=== PATIENT | female | born 1985 | race Caucasian/White ===

== ENCOUNTER 2024-05-14 14:32 | Emergency (ER) | payer OTHER ==
[~2024-05-14] VITALS: Ht 152.4 cm; Wt 113.4 kg
--- NOTE | 2024-05-14 15:05 | NUR ---
covid swab collected and sent
--- NOTE | 2024-05-14 15:05 | NUR ---
medical clearance for voluntary psych admission for [facility] denies HI. no plan
--- NOTE | 2024-05-14 15:07 | NUR ---
UA collected and sent
[2024-05-14 15:23] LABS: BASOPHILS % (AUTO) 0.5 % (0.0-2.0); EOSINOPHILS # (AUTO) 0.1 K/uL (0.0-0.7); EOSINOPHILS % (AUTO) 1.8 % (0.0-6.0); HEMATOCRIT 42 % (33-45); HEMOGLOBIN 14.4 g/dL (11.5-14.8); LYMPHOCYTES # (AUTO) 1.8 K/uL (0.8-4.8); LYMPHOCYTES % (AUTO) 22.7 % (20.0-44.0); MEAN CORPUSCULAR HEMOGLOBIN 31 PG (26.0-33.0); MEAN CORPUSCULAR HGB CONC 34 g/dl (31.0-36.0); MEAN CORPUSCULAR VOLUME 91 fL (82-100); MONOCYTES # (AUTO) 0.5 K/uL (0.1-1.30); NEUTROPHILS # (AUTO) 5.4 K/uL (1.8-8.9); PLATELET COUNT (AUTO) 229 K/uL (150-450); RED BLOOD CELL COUNT(AUTO) 4.65 MIL/uL (4.0-5.2); RED CELL DISTRIBUTION WIDTH 13.8 % (11.5-15.0); WHITE BLOOD COUNT (AUTO) 7.8 K/uL (4.3-11.0)
[2024-05-14 15:26] LABS: APPEARANCE,URINE Slightly Cloudy (CLEAR); BILIRUBIN,URINE Negative (NEGATIVE); BLOOD, URINE Moderate Ery/uL (NEGATIVE); COLOR,URINE YELLOW (YELLOW); KETONES,URINE Negative (NEGATIVE); LEUKOCYTE ESTERASE ,URINE Negative (NEGATIVE); NITRITE, URINE Negative (NEGATIVE); PROTEIN,URINE Negative (NEGATIVE); UGLUCOSE Negative (NEGATIVE); UROBILINOGEN,URINE 0.2 EU/dL (0.2)
[2024-05-14 15:29] LABS: PREGNANCY TEST URINE QUAL NEGATIVE (NEGATIVE)
[2024-05-14 15:30] LABS: CALCIUM, SERUM 9.1 mg/dL (8.5-10.1); CARBON DIOXIDE 28 mmol/L (21-32); CHLORIDE 109 mmol/L (98-107); CREATININE 0.8 mg/dL (0.6-1.3); GLUCOSE 89 mg/dL (74-106); POTASSIUM 3.8 mmol/L (3.5-5.1); SODIUM SERUM 142 mmol/L (136-145); UREA NITROGEN, BLOOD 7 mg/dL (7-18)
[2024-05-14 15:36] LABS: ALANINE AMINOTRANSFERASE 15 U/L (12-78); ALBUMIN 3.8 g/dL (3.4-5.0); ALCOHOL, BLOOD < 3 mg/dL (0-10); ALKALINE PHOSPHATASE 180 U/L (46-116); ASPARTATE AMINOTRANSFERASE 11 U/L (15-37); BILIRUBIN,DIRECT 0.1 mg/dL (0.0-0.2); BILIRUBIN,TOTAL 0.5 mg/dL (0.2-1.0)
[2024-05-14 15:43] LABS: ACETAMINOPHEN <10 ug/ml (10-30)
[2024-05-14 15:52] LABS: AMPHETAMINE, URINE NEGATIVE (NEGATIVE); BARBITURATE, URINE NEGATIVE (NEGATIVE); CANNABINOID, URINE NEGATIVE (NEGATIVE); COCCAINE, URINE NEGATIVE (NEGATIVE); OPIATE, URINE NEGATIVE (NEGATIVE); PHENCYCLIDINE SCREEN,URINE NEGATIVE (NEGATIVE)
[2024-05-14 15:56] LABS: ADD URINE CULTURE NO; BACTERIA,URINE 1+ /HPF (None Seen); WBC,URINE 0-2 /HPF (0-3)
[2024-05-14 16:09] LABS: BENZODIAZEPINE, URINE POSITIVE (NEGATIVE)
--- NOTE | 2024-05-14 18:12 | NUR ---
FAXED FACESHEET & CLINICALS TO [facility].
[2024-05-14] MEDS ORDERED: clonazePAM 1 MG TABLET ONE (22:24)
[2024-05-14] MEDS ORDERED: QUETIAPINE FUMARATE 25 MG TABLET ONE (22:25)
[2024-05-14] MEDS: clonazePAM 1 MG TABLET PO ONE (22:28)
[2024-05-14] MEDS: QUETIAPINE FUMARATE 25 MG TABLET PO SCH (22:28)
[2024-05-14] MEDS: LamoTRIgine 100 MG TABLET PO SCH (22:28)
--- NOTE | 2024-05-14 22:28 | NUR ---
PATIENT NOTIFIED THAT [facility] NOT [facility] ANY BEDS TONIGHT. PT NO LONGER WISHES TO STAY IN ER. DR CHRISTINA NOTIFIED.
--- NOTE | 2024-05-14 22:45 | NUR ---
Patient discharged to home in stable condition. Written and verbal after care instructions given. Patient verbalizes understanding of instruction.Patient is awake and alert to self, day, and place. pt ambulatory with a steady gait
[2024-05-14 22:54] VITALS: BP 129/87; TEMP 98.1; O2SAT 99
== END 2024-05-14 22:55 | disposition home or self-care (01) ==
LOC: ER 14:38
DX: R45.851 Suicidal ideations (principal); F32.A Depression, unspecified; Z20.822 Contact with and (suspected) exposure to COVID-19
CPT/HCPCS: 36415; 80048-TC; 80076-TC; 81001; 84703-TC; 85025-TC; G0480